=== PATIENT | female | born 1980 | race Caucasian/White ===

== ENCOUNTER 2017-05-15 08:19 | Emergency (ER) | payer OTHER ==
[2017-05-15] MEDS ORDERED: Acetaminophen/HYDROcodone 325-10 MG Tab PO ONE (08:49)
[2017-05-15] MEDS ORDERED: Ketorolac 60 MG/2 ML SDV IM ONE (08:51)
[2017-05-15 09:34] LABS: CHLORIDE,CL 102 mmol/L (98-107); SODIUM,NA 141 mmol/L (136-145)
--- NOTE | 2017-05-19 03:36 | EDM.PDOC ---
ED HPI GENERAL MEDICAL PROBLEM - General Chief Complaint: Back Pain or Injury Time Seen by Provider: 05/15/17 08:40 Source of Information: Reports: Patient History Limitations: Reports: No Limitations - History of Present Illness INITIAL COMMENTS - FREE TEXT/NARRATIVE: Pt. states that she woke this AM with low back pain with radiation down her R lateral thigh and into her calf. She denies and saddle anesthesia, incontinence , or chronic back discomfort. Onset: Today Duration: Getting Worse Location: Reports: Back, Lower Extremity, Right Quality: Reports: Ache, Burning Severity: Severe Right Lower Back Pain Score (Numeric/FACES): 8 - Related Data Allergies Allergy/AdvReac Type Severity Reaction Status Date / Time bee venom protein (honey bee) Allergy Severe Hives Verified 05/15/17 13:37 diphenhydramine AdvReac Tachycardia Verified 05/15/17 13:37 [From Benadryl] Home Meds: Home Meds . [No Known Home Meds] 05/15/17 [History] Past Medical History - Past Health History Medical/Surgical History: Denies Medical/Surgical History Social & Family History - Tobacco Use Smoking Status *Q: Never Smoker - Recreational Drug Use Recreational Drug Use: No ED ROS GENERAL - Review of Systems Review Of Systems: See Below Constitutional: Reports: No Symptoms Respiratory: Reports: No Symptoms Cardiovascular: Reports: No Symptoms Musculoskeletal: Reports: Back Pain, Leg Pain Skin: Reports: No Symptoms Neurological: Reports: No Symptoms Hematologic/Lymphatic: Reports: No Symptoms Immunologic: Reports: No Symptoms ED EXAM,LOWER BACK PAIN/INJURY - Physical Exam Exam: See Below General Appearance: Alert, WD/WN, No Apparent Distress Respiratory/Chest: No Respiratory Distress, Lungs Clear, Normal Breath Sounds, No Accessory Muscle Use, Chest Non-Tender Cardiovascular: Normal Peripheral Pulses, Regular Rate, Rhythm, No Edema, No Gallop, No JVD, No Murmur, No Rub GI/Abdominal: Normal Bowel Sounds, Soft, Non-Tender, No Organomegaly, No Distention, No Abnormal Bruit, No Mass Back Exam: Normal Inspection, Decreased Range of Motion, Muscle Spasm Extremities: Normal Inspection, Normal Range of Motion, Non-Tender, No Pedal Edema, Normal Capillary Refill Course - Vital Signs Last Recorded V/S: Last Vital Signs Temp 37.3 C 05/15/17 08:20 Pulse 87 05/15/17 08:20 Resp 16 05/15/17 08:20 BP 130/76 05/15/17 08:20 Pulse Ox - Orders/Labs/Meds Labs: Laboratory Tests 05/15/17 05/15/17 05/15/17 Range/Units 08:50 09:03 09:03 WBC 4.2 (4.0-10.0) x10^3/uL RBC 4.55 (4.00-5.50) x10^6/uL Hgb 13.6 (12.0-16.0) g/dL Hct 42.0 (33.0-47.0) % MCV 92.3 (78.0-93.0) fL MCH 29.9 (26.0-32.0) pg MCHC 32.4 (32.0-36.0) g/dL RDW Coeff of [place] 13.6 (10.0-15.0) % Plt Count 252 (130-400) x10^3/uL Neut % (Auto) 60.2 (50.0-80.0) % Lymph % (Auto) 31.0 (25.0-50.0) % [place] % (Auto) 7.6 (2.0-11.0) % Eos % (Auto) 0.7 (0.0-4.0) % Baso % (Auto) 0.5 (0.2-1.2) % Sodium 141 (136-145) mmol/L Potassium 4.1 (3.5-5.1) mmol/L Chloride 102 (98-107) mmol/L Carbon Dioxide 27 (21-32) mmol/L BUN 12 (7-18) mg/dL Creatinine 0.7 (0.55-1.02) mg/dL Est Cr Clr Drug Dosing 119.34 mL/min Estimated GFR (MDRD) > 60 Glucose 90 (74-106) mg/dL Calcium 9.2 (8.5-10.1) mg/dL Corrected Calcium 8.72 (8.5-10.1) mg/dL Total Bilirubin 0.5 (0.2-1.0) mg/dL AST 19 (15-37) U/L ALT 28 (14-59) U/L Alkaline Phosphatase 48 (46-116) U/L C-Reactive Protein < 0.2 (<=0.9) mg/dL Total Protein 8.3 H (6.4-8.2) g/dL Albumin 4.6 (3.4-5.0) g/dL Globulin 3.7 Albumin/Globulin Ratio 1.24 Urine Color Yellow (YELLOW) Urine Appearance Slightly cloudy H (CLEAR) Urine pH 7.5 (5.0-8.0) Ur Specific [place] 1.020 Urine Protein Negative (NEGATIVE) mg/dL Urine Glucose (UA) Negative (NEGATIVE) mg/dL Urine Ketones Negative (NEGATIVE) mg/dL Urine Occult Blood Trace-intact H (NEGATIVE) Urine Nitrite Negative (NEGATIVE) Urine Bilirubin Negative (NEGATIVE) Urine Urobilinogen 0.2 (0.2) EU/dL Ur Leukocyte Esterase Negative (NEGATIVE) Urine RBC 0-5 (NOT SEEN) /HPF Urine WBC 0-5 (NOT SEEN) /HPF Ur Squamous Epith Cells Many H (NEGATIVE) /HPF Urine Bacteria Moderate H (NEGATIVE) /HPF Meds: Medications Discontinued Medications Generic Name Dose Route Start Last Admin Trade Name Madyson PRN Reason Stop Dose Admin Hydrocodone Bitart/Acetaminophen 1 tab 05/15/17 08:49 05/15/17 09:06 [place] 325-10 Mg PO 05/15/17 08:50 Not Given ONETIME ONE Ketorolac Tromethamine 60 mg 05/15/17 08:51 05/15/17 09:06 Toradol IM 05/15/17 08:52 60 mg ONETIME ONE Administration Departure - Departure Time of Disposition: 19:20 Disposition: Home, Self-Care 01 Condition: Good Clinical Impression: Sciatica - Discharge Information Instructions: Low Back Strain With Rehab-SportsMed, Lumbosacral Radiculopathy Referrals: Jessica Melissa PA-C [Primary Care Provider] - Forms: ED Department Discharge Additional Instructions: [place] 10/325mg 1 every 6 hours as needed for pain. Flexeril 10mg 1 tablet 3 times daily for back spasm. Ibuprofen 600mg every 6 hours as needed for pain. Follow-up in clinic in 10-14 days for recheck.
== END 2017-05-15 10:25 | disposition home or self-care (01) ==
LOC: VM.ED 08:19
DX: M54.41 Lumbago with sciatica, right side (principal); Z91.030 Bee allergy status; Z88.8 Allergy status to other drugs, medicaments and biological substances
CPT/HCPCS: 36415; 72100; 80053; 81001; 85025; 86140; 96372; 99283; J1885